=== PATIENT | male | born 1955 | race Caucasian/White ===

== ENCOUNTER 2025-04-28 21:43 | Inpatient (IN) | payer MEDICARE, OTHER ==
[~2025-04-28] VITALS: Ht 193 cm; Wt 93.2 kg
[2025-04-28] MEDS ORDERED: Ondansetron HCl 2 MG / ML 2ML Vial IV PRN (22:00)
[2025-04-28] MEDS ORDERED: LOSA50 PO (22:02)
[2025-04-28] MEDS ORDERED: GLIMEPIRIDE4 MG PO (22:02)
[2025-04-28] MEDS ORDERED: CARVEDILOL25 M9 PO (22:02)
[2025-04-28] MEDS ORDERED: VITAMIN D5000 UNIT PO (22:03)
[2025-04-28] MEDS ORDERED: METFORMIN HCL500 M3 PO (22:03)
[2025-04-28 22:07] LABS: BASOPHILS ABSOLUTE AUTO 0.03 K/mm3 (0.00-0.23); BASOPHILS PERCENT AUTO 0 % (0-2); EOSINOPHILS ABSOLUTE AUTO 0.00 K/mm3 (0.00-0.68); EOSINOPHILS PERCENT AUTO 0 % (0-6); Hematocrit 43.7 % (37.0-53.0); Hemoglobin 15.2 g/dL (13.5-17.5); IMMATURE GRAN ABSOLUTE AUTO 0.07 K/mm3 (0.00-0.10); IMMATURE GRAN PERCENT AUTO 0 % (0-1); LYMPHOCYTES ABSOLUTE AUTO 2.17 K/mm3 (0.84-5.20); LYMPHOCYTES PERCENT AUTO 12 % (21-46); MONOCYTES ABSOLUTE AUTO 1.63 K/mm3 (0.16-1.47); MONOCYTES PERCENT AUTO 9 % (4-13); Mean Corpuscular HGB Conc 34.8 g/dL (31.5-36.5); Mean Corpuscular Volume 89 fL (80-100); NEUTROPHILS ABSOLUTE AUTO 13.57 K/mm3 (1.96-9.15); NEUTROPHILS PERCENT AUTO 78 % (41-73); NRBC ABSOLUTE 0.00 K/mm3 (0.00-0.02); NRBC Auto 0.0 /100 WBC (0.0-0.2); Platelet Count 328 K/mm3 (150-400); RDW Coefficient Variation 13.1 % (11.7-14.2); RDW Standard Deviation 42.5 fL (35.1-46.3)
[2025-04-28] MEDS ORDERED: Diltiazem HCl 5 MG / ML 5ML Vial IV ONE ×2 (22:10→23:20)
[2025-04-28] MEDS ORDERED: NS 1,000 ML IV SCH (22:10)
[2025-04-28] MEDS ORDERED: Pantoprazole Sodium 40 MG Injection IV ONE (22:10)
[2025-04-28] MEDS ORDERED: Neurontin800 MG PO (22:12)
[2025-04-28] MEDS ORDERED: XARELTO20 M1 PO (22:12)
[2025-04-28 22:22] LABS: Prothrombin Time Results 12.8 Sec (9.7-11.5)
[2025-04-28 22:26] LABS: Alanine Aminotransfer (ALT/SGP 22.0 U/L (12-78); Albumin, Blood 3.9 g/dL (3.4-5.0); Albumin/Globulin Ratio 0.9 (0.8-1.8); Anion Gap 17.0 mmol/L (3-11); Aspartate Aminotrans (AST/SGOT 30.0 U/L (12-37); Bilirubin, Total 1.3 mg/dL (0.1-1.0); Blood Urea Nitrogen 26.0 mg/dL (8-24); CO2, Blood 17.0 mmol/L (21-32); Calcium, Blood 9.0 mg/dL (8.5-10.1); Chloride, Blood 101.0 mmol/L (98-108); Creatinine, Blood 1.04 mg/dL (0.60-1.20); Ethanol (Alcohol), Blood, Med 4.0 mg/dL; Globulin, Blood 4.4 g/dL (2.2-4.0); Glucose, Blood 454.0 mg/dL (70-99); Potassium, Blood 4.3 mmol/L (3.5-5.5); Sodium, Blood 131.0 mmol/L (136-145); Total Protein, Blood 8.3 g/dL (6.4-8.2)
[2025-04-28 23:06] LABS: U Amphetamine Screen Not Detected; U Barbituate Screen Not Detected; U Benzodiazapine Screen Not Detected; U Buprenorphine Screen Not Detected; U Cannabinoids Screen DETECTED; U Cocaine Screen Not Detected; U Methadone Screen Not Detected; U Methamphetamine Screen Not Detected; U Opiates Screen Not Detected; U Oxycodone Screen Not Detected; U Phencyclidine Screen Not Detected
[2025-04-28 23:27] LABS: pH Blood Venous 7.40 (7.34-7.37)
[2025-04-29] VITALS (8 sets, daily range): BP systolic 130–163; BP diastolic 90–113
[2025-04-29] MEDS ORDERED: Morphine Sulfate 4 MG/1 ML Injection IV PRN (01:25)
[2025-04-29] MEDS ORDERED: Naloxone HCl 0.4MG / ML 1ML Vial IV PRN (01:25)
[2025-04-29] MEDS ORDERED: Ondansetron HCl 2 MG / ML 2ML Vial IV PRN (01:25)
[2025-04-29] MEDS ORDERED: Diltiazem HCL 125MG/D5 125ML IV SCH (01:30)
[2025-04-29 03:20] LABS: BASOPHILS ABSOLUTE AUTO 0.02 K/mm3 (0.00-0.23); BASOPHILS PERCENT AUTO 0 % (0-2); EOSINOPHILS ABSOLUTE AUTO 0.00 K/mm3 (0.00-0.68); EOSINOPHILS PERCENT AUTO 0 % (0-6); Hematocrit 41.2 % (37.0-53.0); Hemoglobin 14.2 g/dL (13.5-17.5); IMMATURE GRAN ABSOLUTE AUTO 0.08 K/mm3 (0.00-0.10); IMMATURE GRAN PERCENT AUTO 0 % (0-1); LYMPHOCYTES ABSOLUTE AUTO 2.29 K/mm3 (0.84-5.20); LYMPHOCYTES PERCENT AUTO 12 % (21-46); MONOCYTES ABSOLUTE AUTO 1.66 K/mm3 (0.16-1.47); MONOCYTES PERCENT AUTO 8 % (4-13); Mean Corpuscular HGB Conc 34.5 g/dL (31.5-36.5); Mean Corpuscular Volume 89 fL (80-100); NEUTROPHILS ABSOLUTE AUTO 15.83 K/mm3 (1.96-9.15); NEUTROPHILS PERCENT AUTO 80 % (41-73); NRBC ABSOLUTE 0.00 K/mm3 (0.00-0.02); NRBC Auto 0.0 /100 WBC (0.0-0.2); Platelet Count 290 K/mm3 (150-400); RDW Coefficient Variation 13.2 % (11.7-14.2); RDW Standard Deviation 42.5 fL (35.1-46.3)
[2025-04-29 03:33] LABS: Prothrombin Time Results 12.2 Sec (9.7-11.5)
[2025-04-29 03:39] LABS: Alanine Aminotransfer (ALT/SGP 21.0 U/L (12-78); Albumin, Blood 3.6 g/dL (3.4-5.0); Albumin/Globulin Ratio 0.9 (0.8-1.8); Anion Gap 13.0 mmol/L (3-11); Aspartate Aminotrans (AST/SGOT 30.0 U/L (12-37); Bilirubin, Total 1.2 mg/dL (0.1-1.0); Blood Urea Nitrogen 25.0 mg/dL (8-24); CO2, Blood 18.0 mmol/L (21-32); Calcium, Blood 8.6 mg/dL (8.5-10.1); Chloride, Blood 107.0 mmol/L (98-108); Creatinine, Blood 0.83 mg/dL (0.60-1.20); Globulin, Blood 3.9 g/dL (2.2-4.0); Glucose, Blood 350.0 mg/dL (70-99); Magnesium, Blood 2.2 mg/dL (1.6-2.4); Potassium, Blood 4.1 mmol/L (3.5-5.5); Sodium, Blood 134.0 mmol/L (136-145); Total Protein, Blood 7.5 g/dL (6.4-8.2)
--- NOTE | 2025-04-29 04:54 | NUR ---
SHIFT SUMMARY PT ARRIVED IN UNIT FROM ED AT 0300. PT CAN ANSWER MOST QUESTIONS APPROPRIATELY BUT DOES HAVE APHASIA OR "WORD SALAD". INTERMITTENT CONFUSION WITH PT PULLING AT GOWN/LINES AFTER THIS RN EDUCATED PT REGARDING WHAT THE LINES WERE FOR. TRACKING WELL. A&O X3. UNSURE OF DATE. EQUAL STRENGTH T/O. ABLE TO REPOSITION SELF IN BED. AFIB WITH HR 110-140'S. CARDIZEM GTT INFUSING AND TITRATING PRN PER EMAR. LR INFUSING PER EMAR. HTN NOTED. ON RA WITH SPO2 >92%. REPORTS SOB WITH EXERTION. NO OTHER NEURO DEFICITS NOTED. NPO SINCE MIDNIGHT FOR POSSIBLE SURGERY. SURGEON WAS CONSULTED IN ED PER ORDER. PT DENIES N/V AND PAIN. AZAR CATHETER PLACED IN ED FOR RETENTION WITH >1400MLS OF URINE. LARGE INGUINAL HERNIA NOTED. BED IN LOWEST POSITION AND CALL LIGHT WITHIN REACH. WAS ABLE TO ASSIST WITH HISTORY. BED ALARM ON FOR SAFETY. THIS RN WILL REPORT TO ONCOMING DAYSHIFT RN.
[2025-04-29 05:40] LABS: Source, Urine Straight Cath
[2025-04-29 05:47] LABS: Bilirubin, Urine Neg (Neg); Color, Urine Yellow (P-Yellow); Glucose Qualitative, Urine 4+ (Neg); Ketones, Urine 3+ (Neg); Leukocyte Esterase, Urine Neg (Neg); Protein, Urine 3+ (Neg); Specific Gravity, Urine 1.020 (1.003-1.022); Urobilinogen, Urine NORM (Normal)
[2025-04-29] MEDS ORDERED: Insulin Regular 100 UNIT/ML 10ML Vial SC SCH ×3 (06:00→12:00)
[2025-04-29 06:05] LABS: White Blood Cells, Urine 0-2 /hpf (0-5)
[2025-04-29] MEDS ORDERED: Piperacillin/Tazobactam Sod 3.375 GM in NS 100 ML IV SCH ×2 (08:00→16:00)
[2025-04-29] MEDS ORDERED: Metoprolol Tartrate 1 MG/ML 5 ML VIAL IV PRN ×2 (08:00→08:05)
--- NOTE | 2025-04-29 09:55 | NUR ---
"Spiritual Care Visit | Pt. Request Pt. is awake inbed when he welcomes my visit. Pt. is pleasant. Spouse is at bedside. Facilitated a life review and listened with empathy and a calming presence. Pt. declined and specific spiritual care, but verbalized gratitude for the spiritual care visit."
--- NOTE | 2025-04-29 10:09 | NUR ---
MORNING SUMMARY ASSUMPTION OF CARE ABOUT 0700, REPORT RECIEVED FROM CASSIDY GAYLE. DURING BEDSIDE SHIFT REPORT, THIS RN NOTED THE PT TO HAVE TO GTT'S INFUSING. CARDIZEM @ 15MG/HR AND LR @ 125 ML/HR. DR. MACIAS WANTED THE PT TO HAVE ANOTHER LR BOLUS, THEN CONTINUE THE PREVIOUS ORDER OF LR @125ML/HR X2L. ON TELE PT IS AFIB 90'S-120'S, BP STABLE. THE PT DENIES ANY ANGINA OR CHEST PRESSURE. SP02 >93% ON RA. THE PT REMAINS NPO D/T SBO. DR. GALLO AND DR. SORIANO CAME TO BEDSIDE AT DIFFERENT TIMES TO TRY TO REDUCE THE HERNIA, W/O SUCCESS. NO SURGERY PLANNED AT THIS TIME. HOLDING ON NG-TUBE AT THIS TIME, UNLESS THE PT BECOMES MORE NAUSEATED OR STARTS HAVING EMESIS. DR. MACIAS AND THE HOSPITALIST TEAM ROUNDED ON THE PT THIS MORNING AND DISCUSSED CT RESULTS, AND DISCUSSED PLAN FOR A HEAD MRI. THE PT IS A&OX3, HAVING WORD SALAD. THE PT IS ABLE TO FOLLOW COMMANDS BUT HAS INCREASING WORD SALAD WHEN TALKING ABOUT THE PAST OR A MORE INDEPTH CONVERSATIONS. PERRLA. THE PT'S AND DAUGHTER ARE AT BEDSIDE, AND DISCUSSED PLAN OF CARE WITH THE PROVIDERS. AZAR REMAINS INPLACE FOR RETENTION AND IT IS DRAINING TO GRAVITY. SEE NOTES FOR UPDATES.
[2025-04-29] MEDS ORDERED: Heparin Sodium 5000 Units/ML 1ML MDV IV ONE (12:00)
[2025-04-29] MEDS ORDERED: Heparin Sodium,Porcine/0.5 NS 500 ML IV SCH (12:00)
[2025-04-29] MEDS ORDERED: Docusate Sodium/Senna 1 Tab PO PRN (12:15)
[2025-04-29] MEDS ORDERED: Lidocaine 2% Jelly Uro-Jet TOP ONE ×2 (14:55→15:20)
[2025-04-29] MEDS ORDERED: Benzocaine Oral Spray 0.5ML UD MT ONE (15:25)
[2025-04-29] MEDS ORDERED: Diazepam 5 MG / ML 2ML SYR IV ONE (15:35)
--- NOTE | 2025-04-29 16:05 | NUR ---
THIS AFTERNOON THE PT WAS C/O NAUSEA AND WAS DRY HEAVING. THIS RN CALLED DR. GALLO TO UPDATE HIM ON THE NAUSEA.NG-TUBE TO LIS ORDERED. DOPE SPRAYER YOLANDA, JULIANNA GAYLE, AND THIS RN ATTEMPTED THE NG TUBE. ATTEMPTED TO USE THE URO-JET TO HELP NUMB THE NOSE WITH NO SUCCESS. DR. MACIAS CAME TO BEDSIDE AND DISCUSSED THE NG-TUBE NEED AND ALSO DISCUSSED R. HIP XRAY FINDINGS. CURRENTLY THE PT IS DISCUSSING IF HE WILL ATTEMPT THE NG-TUBE AGAIN, WITH HAVING 2MG DIAZPAM, HURRICANE, SPRAY, AND URO-JET ON BOARD. ALSO, WHILE DR. MACIAS WAS IN THE ROOM SHE ASSESSED THE HEMATURIA AND OPTED TO D/C THE HEPARIN THAT WAS STARTED THIS MORNING. RISK VS BENEFITS DISCUSSED WITH THE PT AND FAMILY. SEE NOTES FOR UPDATES.
--- NOTE | 2025-04-29 16:12 | NUR ---
CASE CONFRENCE- DISCUSSED CASE WITH ENVIRONMENTAL FIELD PROFESSIONAL AND IN ROUND. PATIENT IS PENDING SURGICAL PROCEDURE TODAY. CONCERNS OF NEW CANCER DIAGNOSIS. PC WILL CONTINUE TO FOLLOW AND PROVIDE SUPPORT
--- NOTE | 2025-04-29 17:03 | NUR ---
PALLIATIVE CARE WENT AND TALKED WITH THE PT AND FAMILY. WHILE PALLIATIVE WAS AT BEDSIDE DR. MACIAS CALLED AND TALKED TO YOLANDA BIARRA RN. DR. MACIAS STATED IF THE PT CAN NOT TOLERATE THE NG TUBE AT THIS TIME, WHICH HE CAN NOT, THAT THE TEAM CAN HOLD OFF ON DOING THE NG TUBE. IF THE NAUSEA GETS WORSE OR IF THE PT STARTS VOMITING, THEN THE PT COULD TRANSFER TO ICU FOR PRECEDEX AND NG TUBE PLACEMENT. SEE NOTES FOR UPDATES.
--- NOTE | 2025-04-29 17:16 | NUR ---
MET WITH PATIENT, , AND DAUGHTER. NG TUBE WAS ATTEMPTED EARLIER THIS SHIFT PATIENT DID NOT TOLORATE WELL. PATIENTS , AND DAUGHTER AND TEARFUL. RELAYED THAT I HAD DISCUSSED NG TUBE WITH PROVIDER AND SHE ADVISED THAT IF HE WAS NOT VOMITING AND HIS NAUSEA WAS TOLORABLE IT WAS OK TO NOT PRUSUE NG TUBE PLACMENT AT THIS TIME. IF HIS SYMPTOMS WORSEN WE CAN REEXPLORE PLACMENT AND HEAVIER SEDATITON METHODS. DISCUSSED CODE STATUS WITH PATIENT AND FAMILY. PATIENT CLEAR THAT IF HE PASSES TO LET HIM GO PEACFULLY AND NOT ATTEMPT CPR OR INTUBATION. IS TEARFUL AND EXPRESSED THAT THIS IS NOT WHAT SHE WOULD WANT BUT EXPRESSED UNDERSTANDING OF HIS CHOICE. EDUCATED THAT THE OUTCOME OF CPR AND INTUBATION WOULD NOT LIKLY HAVE A GOOD OUTCOME. PATIENT RESTATED THAT THIS IS HIS CHOICE AND HE DOES NOT WANT CPR. UPDATED BSRN, CHARGE, AND PROVIDER. ORDERS CHANGED PC WILL CONTINUE TO PROVIE SUPPORT
--- NOTE | 2025-04-29 17:32 | NUR ---
PT IS NOW A DNR AFTER TALKING WITH PALLIATIVE CARE. DNR WAS NOT PLACED BECAUSE THE PT IS VERY OVERWHELMED AT THIS TIME. SEE NOTES FOR ANY UPDATES.
--- NOTE | 2025-04-29 18:20 | NUR ---
THE PT IS GETTING CONFUSED NOW. HE APPEARS TO BE SUN DOWNING. HE IS ALERT TO SELF (COULD NOT STATE HIS BIRTHDAY), BUT PULLING AT LINES, PULLED AN IV, AND PULLED AT HIS AZAR CATH MULTIPLE TIMES. THIS RN WAS UNABLE TO LEAVE THE PT'S SIDE OR TAKE EYES OFF THE PT UNTIL A 1:1 CLINICAL SITTER WAS OBTAINED. WORD SALAD CONTINUES. O2 MONITOR AND BLOOD PRESSURE CUFF REMAIN OFF THE PT AT THIS TIME BECAUSE OF RESTLESSNESS AND LINE PULLING. DISCUSSED WITH MASTER OCEAN YACHT. SEE NOTES FOR UPDATES.
[2025-04-30] VITALS (7 sets, daily range): BP systolic 128–162; BP diastolic 92–119
[2025-04-30 04:22] LABS: BASOPHILS ABSOLUTE AUTO 0.02 K/mm3 (0.00-0.23); BASOPHILS PERCENT AUTO 0 % (0-2); EOSINOPHILS ABSOLUTE AUTO 0.00 K/mm3 (0.00-0.68); EOSINOPHILS PERCENT AUTO 0 % (0-6); Hematocrit 39.8 % (37.0-53.0); Hemoglobin 13.6 g/dL (13.5-17.5); IMMATURE GRAN ABSOLUTE AUTO 0.11 K/mm3 (0.00-0.10); IMMATURE GRAN PERCENT AUTO 1 % (0-1); LYMPHOCYTES ABSOLUTE AUTO 1.84 K/mm3 (0.84-5.20); LYMPHOCYTES PERCENT AUTO 9 % (21-46); MONOCYTES ABSOLUTE AUTO 1.79 K/mm3 (0.16-1.47); MONOCYTES PERCENT AUTO 8 % (4-13); Mean Corpuscular HGB Conc 34.2 g/dL (31.5-36.5); Mean Corpuscular Volume 89 fL (80-100); NEUTROPHILS ABSOLUTE AUTO 17.48 K/mm3 (1.96-9.15); NEUTROPHILS PERCENT AUTO 82 % (41-73); NRBC ABSOLUTE 0.00 K/mm3 (0.00-0.02); NRBC Auto 0.0 /100 WBC (0.0-0.2); Platelet Count 204 K/mm3 (150-400); RDW Coefficient Variation 13.3 % (11.7-14.2); RDW Standard Deviation 43.5 fL (35.1-46.3)
[2025-04-30 04:47] LABS: Alanine Aminotransfer (ALT/SGP 26.0 U/L (12-78); Albumin, Blood 3.3 g/dL (3.4-5.0); Albumin/Globulin Ratio 1.0 (0.8-1.8); Anion Gap 8.0 mmol/L (3-11); Aspartate Aminotrans (AST/SGOT 69.0 U/L (12-37); Bilirubin, Total 1.7 mg/dL (0.1-1.0); Blood Urea Nitrogen 27.0 mg/dL (8-24); CO2, Blood 24.0 mmol/L (21-32); Calcium, Blood 8.4 mg/dL (8.5-10.1); Chloride, Blood 109.0 mmol/L (98-108); Creatinine, Blood 0.83 mg/dL (0.60-1.20); Globulin, Blood 3.4 g/dL (2.2-4.0); Glucose, Blood 223.0 mg/dL (70-99); Potassium, Blood 3.3 mmol/L (3.5-5.5); Sodium, Blood 138.0 mmol/L (136-145); Total Protein, Blood 6.7 g/dL (6.4-8.2)
--- NOTE | 2025-04-30 06:10 | NUR ---
SHIFT SUMMARY PATIENT ALERT AND ORIETNED X3. HAD NO COMPLAINTS OF PAIN OR SHORTNESS OF BREATH. MEDICATED PER EMAR FOR NAUSEA, NO VOMITING NOTED OVERNIGHT. PATIENT CONTINUES ON CARDIZEM DRIP AT15, BLOOD PRESSURE STABLE. ON ROOM AIR WITH SPO2 >90%. WILL CONTINUE TO MONITOR. CALL LIGHT WITHIN REACH.
[2025-04-30] MEDS ORDERED: Metoclopramide HCl 5MG / ML 2ML Vial IV PRN (07:35)
[2025-04-30] MEDS ORDERED: Insulin Glargine-Yfgn 100 Unit/mL 3 ML SYR SC SCH (08:00)
[2025-04-30] MEDS ORDERED: Potassium Chl 20MEQ/Water100ML 100 ML IV SCH (08:00)
[2025-04-30] MEDS ORDERED: Dexamethasone Sodium Phosphate 4 MG/ML 1ML Vial IV SCH (09:00)
[2025-04-30] MEDS ORDERED: NS 250 ML IV PRN (10:00)
[2025-04-30 12:17] LABS: Anion Gap 11.0 mmol/L (3-11); Blood Urea Nitrogen 30.0 mg/dL (8-24); CO2, Blood 23.0 mmol/L (21-32); Calcium, Blood 8.2 mg/dL (8.5-10.1); Chloride, Blood 110.0 mmol/L (98-108); Creatinine, Blood 0.85 mg/dL (0.60-1.20); Glucose, Blood 270.0 mg/dL (70-99); Potassium, Blood 3.6 mmol/L (3.5-5.5); Sodium, Blood 140.0 mmol/L (136-145)
[2025-04-30 12:40] LABS: Lactate Dehydrogenase (Ld),Bld 620 U/L (100-240); Prostate Specific Antigen 1300.000 ng/mL (0.000-4.000)
[2025-04-30 13:29] LABS: Source, Urine Foley catheter
[2025-04-30 13:39] LABS: Bilirubin, Urine Neg (Neg); Color, Urine Amber (P-Yellow); Glucose Qualitative, Urine 4+ (Neg); Ketones, Urine 3+ (Neg); Leukocyte Esterase, Urine 1+ (Neg); Protein, Urine 3+ (Neg); Specific Gravity, Urine 1.020 (1.003-1.022); Urobilinogen, Urine NORM (Normal)
[2025-04-30 13:50] LABS: Red Blood Cells, Urine 50-100 /hpf (0-2); WBC Cast 0-2 /lpf (0)
--- NOTE | 2025-04-30 15:36 | NUR ---
patient is improved this shift. nausea has improved. 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 discussed case with charge nurse.
--- NOTE | 2025-04-30 17:46 | NUR ---
SHIFT SUMMARY PT ALERT MOST OF SHIFT, ORIENTED X3. DISORIENTED TO PLACE BUT ABLE TO REORIENT. NAUSEATED THIS AM, CALL PLACED TO RESIDENT FOR REGLAN ORDER. GIVEN PER EMAR. SP02>90% ON RA. TELEMETRY SHOWS AFIB, HR 130'S AT START OF SHIFT. CARDIZEM AT 15. STARTED PO COREG BID, ABLE TO TITRATE OFF CARDIZEM GTT THIS SHIFT, CARDIZEM CURRENTLY OFF AROUND 1400. HR CURRENTLY 100'S. HTN NOTED, SEE VITALS. AZAR CATHETER DRAINING DARK/RED URINE TO GRAVITY. MD AWARE. NO BM. BOWEL TONES ACTIVE, PASSING GAS. INGUINAL HERNIA AREA TENDER. REPOSITIONS SELF IN BED. MD GIRALDO W/ ORDERS FOR 500 ML LR BOLUS AND 1500 MLS AT 150/HR OF LR. SEE EMAR. CURRENTLY INFUSING SECOND BAG. ABX INFUSED THIS SHIFT. RENATE RADHAPORTIA SWAB SENT TO LAB. AND DAUGHTER IN ROOM MOST OF AFTERNOON. PT RESTING IN ROOM, BED ALARM ON, CALL LIGHT IN REACH.
[2025-04-30] MEDS ORDERED: Enoxaparin 100 MG/ML 1ML SYR SC SCH (21:00)
[2025-05-01 03:57] VITALS: BP 142/100
--- NOTE | 2025-05-01 06:32 | NUR ---
SHIFT SUMMARY PATIENT ALERT AND ORIENTED X3. HAD NO COMPLAINTS OF PAIN. MEDICATED ONCE PER EAMR FOR NAUSEA, PATIENT PASSING GAS. ON ROOM AIR WITH SPO2 >90% ON ROOM AIR. CONTINUES IN AFIB ON TELE, RATE 80'S-100. NO ACUTE ISSUES NOTED OVERNIGHT. WILL CONTINUE TO MONITOR. CALL LIGHT WITHIN REACH.
[2025-05-01 07:31] VITALS: BP 168/116
[2025-05-01 07:41] LABS: BASOPHILS ABSOLUTE AUTO 0.03 K/mm3 (0.00-0.23); BASOPHILS PERCENT AUTO 0 % (0-2); EOSINOPHILS ABSOLUTE AUTO 0.01 K/mm3 (0.00-0.68); EOSINOPHILS PERCENT AUTO 0 % (0-6); Hematocrit 40.6 % (37.0-53.0); Hemoglobin 13.8 g/dL (13.5-17.5); IMMATURE GRAN ABSOLUTE AUTO 0.15 K/mm3 (0.00-0.10); IMMATURE GRAN PERCENT AUTO 1 % (0-1); LYMPHOCYTES ABSOLUTE AUTO 2.58 K/mm3 (0.84-5.20); LYMPHOCYTES PERCENT AUTO 12 % (21-46); MONOCYTES ABSOLUTE AUTO 2.11 K/mm3 (0.16-1.47); MONOCYTES PERCENT AUTO 10 % (4-13); Mean Corpuscular HGB Conc 34.0 g/dL (31.5-36.5); Mean Corpuscular Volume 91 fL (80-100); NEUTROPHILS ABSOLUTE AUTO 16.92 K/mm3 (1.96-9.15); NEUTROPHILS PERCENT AUTO 78 % (41-73); NRBC ABSOLUTE 0.00 K/mm3 (0.00-0.02); NRBC Auto 0.0 /100 WBC (0.0-0.2); Platelet Count 197 K/mm3 (150-400); RDW Coefficient Variation 13.2 % (11.7-14.2); RDW Standard Deviation 44.4 fL (35.1-46.3)
[2025-05-01 08:06] LABS: Alanine Aminotransfer (ALT/SGP 27.0 U/L (12-78); Albumin, Blood 3.1 g/dL (3.4-5.0); Albumin/Globulin Ratio 0.9 (0.8-1.8); Anion Gap 8.0 mmol/L (3-11); Aspartate Aminotrans (AST/SGOT 28.0 U/L (12-37); Bilirubin, Total 1.2 mg/dL (0.1-1.0); Blood Urea Nitrogen 31.0 mg/dL (8-24); CO2, Blood 25.0 mmol/L (21-32); Calcium, Blood 8.3 mg/dL (8.5-10.1); Chloride, Blood 111.0 mmol/L (98-108); Creatinine, Blood 0.75 mg/dL (0.60-1.20); Globulin, Blood 3.3 g/dL (2.2-4.0); Glucose, Blood 164.0 mg/dL (70-99); Potassium, Blood 3.6 mmol/L (3.5-5.5); Sodium, Blood 140.0 mmol/L (136-145); Total Protein, Blood 6.4 g/dL (6.4-8.2)
[2025-05-01] MEDS ORDERED: Insulin Glargine-Yfgn 100 Unit/mL 3 ML SYR SC SCH (09:00)
[2025-05-01] MEDS ORDERED: Insulin Regular 100 UNIT/ML 10ML Vial SC SCH (12:00)
[2025-05-01] MEDS ORDERED: Polyethylene Glycol 3350 17 gm PO SCH (12:40)
[2025-05-01 13:37] VITALS: BP 146/109
[2025-05-01 15:22] VITALS: BP 161/111
--- NOTE | 2025-05-01 17:22 | NUR ---
SHIFT SUMMARY PT A&OX4. ABLE TO MAKE NEEDS KNOWN. SP02>90% ON RA. TELEMETRY SHOWS AFIB, MOSTLY 110'S. UP TO 150'S W/ AMBULATION. COREG DOSE INCREASED THIS SHIFT. HTN NOTED. AZAR CATHETER DRAINING TEA COLORED URINE TO GRAVITY. NO BM THIS SHIFT BUT PASSING COPIOUS AMOUNTS OF GAS. NO ODOR THIS AM BUT STARTED TO HAVE REPUGNANT ODOR THIS EVENING, PT STATES. LR INFUSING PER EMAR. ABX INFUSED PER EMAR. REPOSITIONS SELF IN BED. WORKED W/ PT THIS AM, WALKED AROUND UNIT. PALLIATIVE CARE AND MD IN ROOM THIS AM TO HAVE GOALS OF CARE DISCUSSION W/ PT AND THEN AGAIN WITH PT AND , DAUGHTER, AND ISMAEL. MD GALLO IN ROOM TO ASSESS. MD GALLO W/ ORDERS TO PROGRESS TO CLEAR LIQUID DIET AND START MIROLAX. PT SITTING UP IN BED WATCHING TV. CALL LIGHT IN REACH.
[2025-05-01 20:00] VITALS: BP 140/99
[2025-05-02] VITALS (7 sets, daily range): BP systolic 120–169; BP diastolic 78–116
[2025-05-02 04:45] LABS: BASOPHILS ABSOLUTE AUTO 0.01 K/mm3 (0.00-0.23); BASOPHILS PERCENT AUTO 0 % (0-2); EOSINOPHILS ABSOLUTE AUTO 0.00 K/mm3 (0.00-0.68); EOSINOPHILS PERCENT AUTO 0 % (0-6); Hematocrit 39.1 % (37.0-53.0); Hemoglobin 13.5 g/dL (13.5-17.5); IMMATURE GRAN ABSOLUTE AUTO 0.08 K/mm3 (0.00-0.10); IMMATURE GRAN PERCENT AUTO 1 % (0-1); LYMPHOCYTES ABSOLUTE AUTO 2.49 K/mm3 (0.84-5.20); LYMPHOCYTES PERCENT AUTO 16 % (21-46); MONOCYTES ABSOLUTE AUTO 1.40 K/mm3 (0.16-1.47); MONOCYTES PERCENT AUTO 9 % (4-13); Mean Corpuscular HGB Conc 34.5 g/dL (31.5-36.5); Mean Corpuscular Volume 88 fL (80-100); NEUTROPHILS ABSOLUTE AUTO 11.97 K/mm3 (1.96-9.15); NEUTROPHILS PERCENT AUTO 75 % (41-73); NRBC ABSOLUTE 0.00 K/mm3 (0.00-0.02); NRBC Auto 0.0 /100 WBC (0.0-0.2); Platelet Count 191 K/mm3 (150-400); RDW Coefficient Variation 13.0 % (11.7-14.2); RDW Standard Deviation 42.3 fL (35.1-46.3)
[2025-05-02 05:07] LABS: Alanine Aminotransfer (ALT/SGP 24.0 U/L (12-78); Albumin, Blood 2.6 g/dL (3.4-5.0); Albumin/Globulin Ratio 0.8 (0.8-1.8); Anion Gap 9.0 mmol/L (3-11); Aspartate Aminotrans (AST/SGOT 16.0 U/L (12-37); Bilirubin, Total 1.1 mg/dL (0.1-1.0); Blood Urea Nitrogen 27.0 mg/dL (8-24); CO2, Blood 25.0 mmol/L (21-32); Calcium, Blood 7.8 mg/dL (8.5-10.1); Chloride, Blood 108.0 mmol/L (98-108); Creatinine, Blood 0.64 mg/dL (0.60-1.20); Globulin, Blood 3.2 g/dL (2.2-4.0); Glucose, Blood 162.0 mg/dL (70-99); Magnesium, Blood 2.0 mg/dL (1.6-2.4); Potassium, Blood 3.5 mmol/L (3.5-5.5); Sodium, Blood 138.0 mmol/L (136-145); Total Protein, Blood 5.8 g/dL (6.4-8.2)
--- NOTE | 2025-05-02 05:48 | NUR ---
SHIFT SUMMARY: PT IS AOX3-4. PT DENIED NAUSEA THIS SHIFT. PT ALSO HAD A BM THIS SHIFT, AFTER PASSING GAS ALL DAY. TELEMETRY MONITORING IS IN PLACE, AFIB 90s. DENIED PAIN. CALL LIGHT IS WITHIN REACH. BED IS LOW AND LOCKED.
[2025-05-02] MEDS ORDERED: Potassium Phosphate Dibasic 20 MM in Dextrose 5% 500 ML IV STA (07:24)
[2025-05-02 15:58] LABS: Anion Gap 10.0 mmol/L (3-11); Blood Urea Nitrogen 30.0 mg/dL (8-24); CO2, Blood 24.0 mmol/L (21-32); Calcium, Blood 8.4 mg/dL (8.5-10.1); Chloride, Blood 105.0 mmol/L (98-108); Creatinine, Blood 0.79 mg/dL (0.60-1.20); Glucose, Blood 210.0 mg/dL (70-99); Potassium, Blood 3.9 mmol/L (3.5-5.5); Sodium, Blood 135.0 mmol/L (136-145)
--- NOTE | 2025-05-02 16:11 | NUR ---
PT IS PLEASANT AND JOVIAL. ENGAUGES IN CONVERSATION RE: CURRENT HEALTH STATUS AND POSSIBLE FOLLOW UP PLAN WITH ONCOLOGY TO ESTABLISH A CARE PLAN OR SEE IF TX IS APPROPRIATE. HE DENIES PAIN AT THIS TIME AND ENDORSES FLATUS AND RECENT BM. PT DECLINED FILLING OUT A POLST AT THIS TIME. ADVANCE DIRECTIVE PROVIDED TO PT AND , FE FOR REVIEW. PC TO REMAIN AVAILABLE NEEDED.
--- NOTE | 2025-05-02 16:38 | NUR ---
shift summary. shift has gone well overall. aox4, pleasant, cooperative, able to make needs known. has denied pain throughout shift. vitals have been stable throughout shift, continues to run afib on tele w/ rate anywhere in the 90s-110s range. maintains adequate saturation on room air. 3 bowel movements today thus far. steady 1pa transfer w/fww. calls appropriately for assistance. encouraging activity prn and pt is very motivated to perform activity and participate in care. bed locked in lowest position. call light left wtihin reach. continuing to monitor.
--- NOTE | 2025-05-02 17:25 | NUR ---
Call back - spiritual care. Pt was welcoming, freindly. Banter provided to build rapport. Pt provided space to reflect on diagnosis. Pt had a few existential questions that staff writer responded to. Healthy conversation was conducted with pastoral patent counsel to bring clarity. Pt began to divulge family history and negative experiences of the past. Stand In listened intently, normalizing and affirming his stated emotions. Paint Laboratory Technician provide for reconciliation. Pt voiced gratitude for the visit.
[2025-05-02] MEDS ORDERED: Insulin Regular 100 UNIT/ML 10ML Vial SC SCH (17:30)
[2025-05-02] MEDS ORDERED: Magnesium Hydroxide Conc 10 ML UDC PO SCH (21:00)
--- NOTE | 2025-05-03 00:21 | NUR ---
UPDATE PT REMAINS A/OX4. VSS ON RA >92%. ON TELE AFIB 90S-110S. PT RESTING IN BED. ASSESSMENT WNL. NO PAIN REPORTED. MEDS GIVEN PER EMAR. AZAR REMAINS INTACT AND DRAINING WITH GRAVITY. REPORT GIVEN TO [place] ON MEDICAL FLOOR FOR ONGOING CARE.
[2025-05-03 00:23] VITALS: BP 135/101
--- NOTE | 2025-05-03 02:13 | NUR ---
TRANSFER SUMMARY PT AOX4 TRANSFERRED FROM [facility] @ 0023. BEDS TRADED. PT VERY PLEASANT. DENIES SOB OR CP. ORIENTED TO ROOM AND CALL LIGHT. PT IN BED RESTING, BED IN LOWEST POSITION, CALL LIGHT IN REACH. CONTINUING CARE.
[2025-05-03 03:08] VITALS: BP 160/116
--- NOTE | 2025-05-03 05:04 | NUR ---
SHIFT SUMMARY: PT AOX4 1PA/SBA TO THE BATHROOM, NEEDS ASSISTANCE MANAGING AZAR AND LINES. TOLERATING MEDICATIONS WELL. CALLS APPROPRIATELY AND IS ABLE TO MAKE NEEDS KNOWN. PT VERY PLEASANT AND TALKATIVE. EAGER TO GO HOME. PT HAD A BM AND AZAR HAVING CLEAN YELLOW OUTPUT. PT IN BED RESTING, BED IN LOWEST POSITION, CALL LIGHT IN REACH. CONTINUING CARE.
[2025-05-03 05:42] LABS: BASOPHILS ABSOLUTE AUTO 0.03 K/mm3 (0.00-0.23); BASOPHILS PERCENT AUTO 0 % (0-2); EOSINOPHILS ABSOLUTE AUTO 0.06 K/mm3 (0.00-0.68); EOSINOPHILS PERCENT AUTO 0 % (0-6); Hematocrit 40.8 % (37.0-53.0); Hemoglobin 14.0 g/dL (13.5-17.5); IMMATURE GRAN ABSOLUTE AUTO 0.06 K/mm3 (0.00-0.10); IMMATURE GRAN PERCENT AUTO 0 % (0-1); LYMPHOCYTES ABSOLUTE AUTO 3.18 K/mm3 (0.84-5.20); LYMPHOCYTES PERCENT AUTO 22 % (21-46); MONOCYTES ABSOLUTE AUTO 1.46 K/mm3 (0.16-1.47); MONOCYTES PERCENT AUTO 10 % (4-13); Mean Corpuscular HGB Conc 34.3 g/dL (31.5-36.5); Mean Corpuscular Volume 88 fL (80-100); NEUTROPHILS ABSOLUTE AUTO 9.79 K/mm3 (1.96-9.15); NEUTROPHILS PERCENT AUTO 67 % (41-73); NRBC ABSOLUTE 0.00 K/mm3 (0.00-0.02); NRBC Auto 0.0 /100 WBC (0.0-0.2); Platelet Count 217 K/mm3 (150-400); RDW Coefficient Variation 13.0 % (11.7-14.2); RDW Standard Deviation 42.0 fL (35.1-46.3)
[2025-05-03 06:06] LABS: Alanine Aminotransfer (ALT/SGP 26.0 U/L (12-78); Albumin, Blood 2.8 g/dL (3.4-5.0); Albumin/Globulin Ratio 0.8 (0.8-1.8); Anion Gap 10.0 mmol/L (3-11); Aspartate Aminotrans (AST/SGOT 23.0 U/L (12-37); Bilirubin, Total 1.2 mg/dL (0.1-1.0); Blood Urea Nitrogen 23.0 mg/dL (8-24); CO2, Blood 25.0 mmol/L (21-32); Calcium, Blood 7.8 mg/dL (8.5-10.1); Chloride, Blood 107.0 mmol/L (98-108); Creatinine, Blood 0.78 mg/dL (0.60-1.20); Globulin, Blood 3.5 g/dL (2.2-4.0); Glucose, Blood 140.0 mg/dL (70-99); Magnesium, Blood 2.1 mg/dL (1.6-2.4); Phosphorus, Blood 2.4 mg/dL (2.5-4.9); Potassium, Blood 3.7 mmol/L (3.5-5.5); Sodium, Blood 138.0 mmol/L (136-145); Total Protein, Blood 6.3 g/dL (6.4-8.2)
[2025-05-03] MEDS ORDERED: Potassium Phosphate Dibasic 20 MM in Dextrose 5% 500 ML IV STA (07:07)
[2025-05-03 07:24] VITALS: BP 159/116
[2025-05-03] MEDS ORDERED: FAMO20 PO (09:07)
--- NOTE | 2025-05-03 10:57 | NUR ---
Spiritual Care Visit. Pt. is awake in bed when he welcomes my visit. Pt. is pleasant. Spouse and daughter are at bedside. Facilitated an update and Pt. verbalized that he had a wonderful visit with a gem setter on Saturday. Listen with interest and empathy. Pt. verbalized an expectation of a possible biopsy as a nest step. Pt. welcomed this gem setter's visit and welcomed prayer. Prayed with Pt. and family. Both Pt. and spouse verbalized gratitude for the spiritual care visit and welcomed this gem setter to return.
[2025-05-03 11:04] LABS: FREE URINE KAPPA LIGHT CHAINS 103.47 mg/L (0.00-32.90); FREE URINE LAMBDA LIGHT CHAIN 22.75 mg/L (0.00-3.79); HOURS COLLECTED Not Provided hr
[2025-05-03] MEDS ORDERED: METO10 PO (16:10)
--- NOTE | 2025-05-03 17:17 | NUR ---
DC-[id number] PT LEFT IN STABLE CONDITION. PT IN WC AND BROUGHT DOWN TO AND DAUGHTER IN CAR. PT LEFT WITH ALL BELONGINGS. THIS RN DISCUSSED IN DETAIL HOW TO PROPERLY CLEAN AZAR CATHETER AND CARE FOR IT. PT WAS ALSO GIVEN AN EXTRA AZAR BAG AND A LEG BAG. THIS RN ALSO DISCUSSED WITH AND PT NEW MEDS TO CLINICAL PRACTITIONER FROM [employer]. ALL QUESTIONS/CONCERNS ANSWERED.
[2025-05-04 17:11] LABS: ALPHA 1 GLOBULIN 0.33 g/dL (0.19-0.46); ALPHA 2 GLOBULIN 0.66 g/dL (0.48-1.05); BETA GLOBULIN 0.82 g/dL (0.48-1.10); GAMMA 0.68 g/dL (0.62-1.51); IMMUNOFIXATION REFLEX Not Done
== END 2025-05-03 16:49 | disposition home health service (06) | DRG 393 ==
LOC: ER 21:43 → PCU 04-29 01:20 → MEDS 04-29 01:20 → PCU 04-29 02:53 → MEDS 05-03 00:05
PROVIDERS: Emergency Medicine; ADMIT Student in an Organized Health Care Education/Training Program
PROC: 0DH67UZ Insertion of Feeding Device into Stomach, Via Natural or Artificial Opening (ICD-10-PCS; principal; 2025-04-29)
PROC: 3E03329 Introduction of Other Anti-infective into Peripheral Vein, Percutaneous Approach (ICD-10-PCS; 2025-04-29)
DX: K40.30 Unilateral inguinal hernia, with obstruction, without gangrene, not specified as recurrent (principal); A41.9 Sepsis, unspecified organism; G92.8 Other toxic encephalopathy; E87.20 Acidosis, unspecified; C79.51 Secondary malignant neoplasm of bone; N13.30 Unspecified hydronephrosis; R47.01 Aphasia; Z66 Do not resuscitate; I48.91 Unspecified atrial fibrillation; E11.65 Type 2 diabetes mellitus with hyperglycemia; R91.8 Other nonspecific abnormal finding of lung field; I10 Essential (primary) hypertension; F12.90 Cannabis use, unspecified, uncomplicated; E88.89 Other specified metabolic disorders; T73.0XXA Starvation, initial encounter; C80.1 Malignant (primary) neoplasm, unspecified; E83.39 Other disorders of phosphorus metabolism; Z88.8 Allergy status to other drugs, medicaments and biological substances; Z79.01 Long term (current) use of anticoagulants; Z87.891 Personal history of nicotine dependence
CPT/HCPCS: 36415; 51702; 70450; 70551; 71045; 73552; 74177; 80048; 80053; 80320; 81001; 82010; 82272; 82378; 82784; 82803; 82947; 83036; 83521; 83605; 83615; 83735; 84100; 84155; 84156; 84165; 85025; 85060; 85610; 85730; 86334; 86335; 86850; 86900; 86901; 87040; 92610; 93005; 93010; 94762; 96361; 96374-59; 96375; 96375-59; 96376; 97110; 97112; 97116; 97161; 97530; 99285-25; A9270; C1751; G0103; J1100; J1644; J1650; J1815; J2185; J2405; J2470; J2543; J2765; J3480; J7030; J7050; J7060; J7120; Q9967

== ENCOUNTER → 2025-08-02 | Outpatient (CLI) | payer MEDICARE, OTHER ==
[~2025-08-02] MED LIST: CARVEDILOL25 M9 PO; FAMO20 PO; GLIMEPIRIDE4 MG PO; LOSA50 PO; METFORMIN HCL500 M3 PO; METO10 PO; Neurontin800 MG PO; VITAMIN D5000 UNIT PO; XARELTO20 M1 PO
== END ==
LOC: LAB SHORT 08:06 → LAB 08:06
DX: C61 Malignant neoplasm of prostate (principal)
CPT/HCPCS: 88305; 88341; 88342